=== PATIENT | female | born 1980 | race Caucasian/White ===

== ENCOUNTER 2019-03-27 06:50 | Emergency (ER) | payer OTHER, BC, SELFPAY ==
[2019-03-27 06:51] VITALS: BP 126/96; PULSE 97; RESP 22; TEMP 36.2; O2SAT 100; BMI 20.4
--- NOTE | 2019-03-27 07:54 | ED.VIS.UPPEX ---
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 It was not heavy, but it was a thin metal disc that was sharp. She is left-hand dominant. Tetanus Immunization: Unknown Past Medical History - Allergies and Home Meds Allergies/Adverse Reactions: Allergies amoxicillin Allergy (Verified 03/27/19 06:53) C-DIFF Primary Care Physician: Guido Velarde MD [STAFF PHYSICIAN] - As soon as possible (call for appt) Trenton Parikh PA [Primary Care Provider] - Past Medical History: None Smoking Status: Current every day smoker Drugs: None Review of Systems Musculoskeletal: Reports: Extremity Pain Skin: Reports: Wounds Neurological: Denies: Weakness, Parasthesia, Numbness Physical Exam Vital Signs/Narrative: Vital Signs Temp Pulse Resp BP Pulse Ox 03/27/19 06:51 97.2 F L 97 22 H 126/96 H 100 General: Well nourished, Well developed, - - NAD Head: Normocephalic, Atraumatic Extremeties: Laceration volar left forearm at the junction of the middle and distal thirds as described below. Palmaris longus appears to be completely lacerated within the wound. There is muscle belly involvement of flexor digitorum, but all FDS and FDP tendon function is intact for all fingers. She is able to move the wrist including flexion but with pain. She has less pain moving the fingers, but flexing them hurts as well. Skin: Trauma - 4cm volar left forearm laceration; mostly linear, nonpulsatile dark red blood oozing, just beyond investing fascia into muscle of flexor digitorum, completely lacerated tendon seen within the wound. No gross contamination. Neurological: Alert, Oriented x3, Cranial nerves II-XII grossly intact, Normal Strength, Normal Sensation Psychological: Normal affect, Normal Mood Diagnostic/Tx/Re-eval - Medical Decision Making Given that the injury penetrated the investing fascia of her forearm flexor musculature, she will be placed on prophylactic antibiotics. Keflex x5 days. She fully lacerated what appears to be the palmaris longus tendon, as it laid superficial to the flexor digitorum and in the midline, the distal piece of the tendon flexed up into the wound space as I passively flexed her palm. This may need to be repaired. I discussed with Dr. Martin, he does not do hand and neither does anyone in his practice. Dr. Velarde will have the ability to care for this, we attempted to call him but he was not immediately available; I did speak with him later. I will have the patient follow-up with him and give her appropriate restrictions in the meantime along with a wrist splint. Procedures - Lacerations Left forearm Length: 4 cm Depth: Muscle Shape: Linear Prep: Sterile Conditions, Chlorhexadine Laceration repair: Irrigated, Lidocaine with epi - 5cc, Local Irrigated (ml): 100 - not high pressure due to fascia penetration Number of Sutures/[place]: 4 Suture Information: Ethilon, Horizontal, Mattress, 4-0 ED Disposition - Plan for ED Patient: Disposition: Home or Assisted Living Diagnosis: Flexor tendon laceration of left forearm with open wound Instructions: LACERATION, Extrem (Suture, Staple or Tape), LACERATION, Tendon Prescriptions: Cephalexin [Keflex] 500 mg PO Q12 #10 cap Prescription Printed Referrals: Trenton Parikh PA [Primary Care Provider] - Guido Velarde MD [STAFF PHYSICIAN] - As soon as possible (call for appt)
[2019-03-27] MEDS: Diphth,Pertuss(Acell),Tet Vac 0.5 ML Vial IM (08:01)
[2019-03-27 09:20] VITALS: RESP 18
== END 2019-03-27 09:30 | disposition home or self-care (01) ==
PROVIDERS: Emergency Provider Emergency Medicine; Family Provider Physician Assistant; PCP Physician Assistant
DX: S56.222A Laceration of other flexor muscle, fascia and tendon at forearm level, left arm, initial encounter (principal); W26.8XXA Contact with other sharp object(s), not elsewhere classified, initial encounter; Y93.9 Activity, unspecified; Y92.9 Unspecified place or not applicable; F17.200 Nicotine dependence, unspecified, uncomplicated
CPT/HCPCS: 12002; 90471; 90715; 99284